=== PATIENT | female | born 1970 | race Caucasian/White ===

== ENCOUNTER 2022-10-04 06:36 | Emergency (ER) | payer BC, SELFPAY ==
[2022-10-04 06:48] VITALS: BP 111/77; PULSE 105; RESP 20; TEMP 36.6; O2SAT 98; BMI 26.6
--- NOTE | 2022-10-04 07:10 | ED.SYNCOPE ---
HPI - Syncope General Stated Complaint: Low blood pressure and syncope <Gregory Beasley MD - Last Filed: 10/04/22 07:26> Time Seen by Provider: 10/04/22 07:01 <Gregory Beasley MD - Last Filed: 10/04/22 07:26> History of Present Illness HPI narrative: Pt is a healthy 51 year old woman who went to bed last night feeling fine. She got up with diarrhea at 0200 and had a brief syncopal episode on the toilet. Pt was not injured and went back to bed she had another episode after diarrhea and vomiting at 0400 at which point pt fell to the floor striking her head. Pt was able to get up with the help of her . Pt has no focal neurological symptoms other than feeling weak and nauseated. She has no abd pain, fevers, chills, dysuria, rash or headache. No obvious deformities to the dylon or scalp. Pt has had no similar symptoms previously. No pain. Pt has had no blood in her vomit or stool. Pt brought in by car by her . <Gregory Beasley MD - Last Filed: 10/04/22 07:26> Related Data Home Medications: Home Medications Medication Instructions Recorded Confirmed dexamethasone 0.5 mg/5 mL oral mg 10/04/22 elixir levothyroxine 112 mcg tablet mcg 10/04/22 <Gergory Beasley MD - Last Filed: 10/04/22 07:26> Allergies/Adverse Reactions: Allergies Allergy/AdvReac Type Severity Reaction Status Date / Time bee venom protein (honey bee) Allergy Mild Hives Verified 10/04/22 06:56 amoxicillin Allergy Hives Verified 10/04/22 06:56 <Gregory Beasley MD - Last Filed: 10/04/22 07:26> Review of Systems Status of ROS: Reports: 10 or more systems reviewed and unremarkable except as noted in History and below <Gregory Beasley MD - Last Filed: 10/04/22 07:26> [facility] Medical History: Medical History Hypothyroid Migraine Mouth sores <Gregory Beasley MD - Last Filed: 10/04/22 07:26> Exam Narrative: Exam Narrative: EXAM GENERAL: Patient appears comfortable and well. EYES: No scleral icterus. THYROID: no thyroid nodules or thyromegaly. LYMPH: No supraclavicular or cervical lymphadenopathy. SKIN: Visible skin seen during exam normal or with benign process only. EXT: No dependent lower extremity pedal edema. HEART: Regular rate and rhythm with no murmurs, rubs, or gallops. LUNGS: Clear to auscultation bilaterally with no crackles or wheezes. ABD: Soft, non tender, non distended. PSYCH: Good eye contact, speech is not pressured. Neurologic cranial nerves 2-12 grossly intact no focal defects. <Gregory Beasley MD - Last Filed: 10/04/22 07:26> Const: Vital Signs, click to edit/add: Vital Signs - 24 hr 10/04/22 06:48 Temperature 97.8 F Pulse Rate [Left P ulse Oximeter] 105 H Respiratory Rate 20 Blood Pressure [Ri ght Upper Arm] 111/77 Pulse Oximetry 98 Oxygen Delivery Me thod Room Air <Gregory Beasley MD - Last Filed: 10/04/22 07:26> Vital Signs, click to edit/add: Vital Signs - 24 hr 10/04/22 06:48 Temperature 97.8 F Pulse Rate [Left P ulse Oximeter] 105 H Respiratory Rate 20 Blood Pressure [Ri ght Upper Arm] 111/77 Pulse Oximetry 98 Oxygen Delivery Me thod Room Air <Joellen Mccallum MD - Last Filed: 10/04/22 08:41> Course Course Hospital Course: Pt seen and examined. No focal defects. Mild tachycardia noted. CT head and neck. cbc, cmp, d dimer, troponin, urinalysis ordered. EKG upon my review shows normal sinus rhythm. Normal saline bolus and iv zofran given. <Gregory Beasley MD - Last Filed: 10/04/22 07:26> Reevaluation(s) Reevaluation #1: Clarified patient's reasons for coming to the ER. She had an episode of vomiting and diarrhea simultaneously that came out of the blue at 2:00 a.m. in the morning while she was on the toilet she became very lightheaded, she started getting tunnel vision and she passed out. About 2 hours later she had another episode of the same thing and when she got out of the bed to go to the bathroom she passed out into her 's arms. She was only unconscious for several seconds before waking up. She is not having any chest pain or shortness of breath. She has no headache. No focal neurologic deficits. Patient received a L of normal saline and felt significantly better. She was not feeling lightheaded. Lab work was unremarkable. Head and neck CT unremarkable. <Joellen Mccallum MD - Last Filed: 10/04/22 08:41> Vital Signs Vital signs: Initial Vital Signs Temperature 97.8 F 10/04/22 06:48 Temperature Source Temporal Artery Scan 10/04/22 06:48 Pulse Rate 105 H 10/04/22 06:48 Respiratory Rate 20 10/04/22 06:48 Blood Pressure 111/77 10/04/22 06:48 Blood Pressure Mean 88 10/04/22 06:48 Blood Pressure Position Semi-Fowlers 10/04/22 06:48 Pulse Oximetry 98 10/04/22 06:48 Oxygen Delivery Method 10/04/22 06:48 Vital Signs Temperature 97.8 F 10/04/22 06:48 Pulse Rate 105 H 10/04/22 06:48 Respiratory Rate 20 10/04/22 06:48 Blood Pressure 111/77 10/04/22 06:48 Pulse Oximetry 98 10/04/22 06:48 Oxygen Delivery Method 10/04/22 06:48 Temperature 97.8 F 10/04/22 06:48 Pulse Rate 105 H 10/04/22 06:48 Respiratory Rate 20 10/04/22 06:48 Blood Pressure 111/77 10/04/22 06:48 Pulse Oximetry 98 10/04/22 06:48 Oxygen Delivery Method 10/04/22 06:48 <Gregory Beasley MD - Last Filed: 10/04/22 07:26> Initial Vital Signs Temperature 97.8 F 10/04/22 06:48 Temperature Source Temporal Artery Scan 10/04/22 06:48 Pulse Rate 105 H 10/04/22 06:48 Respiratory Rate 20 10/04/22 06:48 Blood Pressure 111/77 10/04/22 06:48 Blood Pressure Mean 88 10/04/22 06:48 Blood Pressure Position Semi-Fowlers 10/04/22 06:48 Pulse Oximetry 98 10/04/22 06:48 Oxygen Delivery Method 10/04/22 06:48 Vital Signs Temperature 97.8 F 10/04/22 06:48 Pulse Rate 105 H 10/04/22 06:48 Respiratory Rate 20 10/04/22 06:48 Blood Pressure 111/77 10/04/22 06:48 Pulse Oximetry 98 10/04/22 06:48 Oxygen Delivery Method 10/04/22 06:48 Temperature 97.8 F 10/04/22 06:48 Pulse Rate 105 H 10/04/22 06:48 Respiratory Rate 20 10/04/22 06:48 Blood Pressure 111/77 10/04/22 06:48 Pulse Oximetry 98 10/04/22 06:48 Oxygen Delivery Method 10/04/22 06:48 <Joellen Mccallum MD - Last Filed: 10/04/22 08:41> MDM - Syncope MDM Narrative Medical decision making narrative: 51-year-old female with probable gastroenteritis presenting with vomiting and diarrhea simultaneously, with a syncopal episode. We discussed continued hydration, rest. We discussed reasons for follow-up. Patient was agreeable with everything we discussed had no other questions. <Joellen Mccallum MD - Last Filed: 10/04/22 08:41> Lab Data Attestation: I reviewed the patient's lab results. <Joellen Mccallum MD - Last Filed: 10/04/22 08:41> Labs: Lab Results 10/04/22 10/04/22 10/04/22 Range/Units 07:45 07:45 07:45 WBC 11.82 H (4.50-11.00) K/uL RBC 4.90 (4.00-5.20) m/uL Hgb 14.5 (12.0-16.0) gm/dL Hct 43.7 (33.0-51.0) % MCV 89 (80-100) fL MCH 30 (26-34) pg MCHC 33 (32-36) gm/dL RDW Coeff of Rosita 12.7 (11.5-15.5) % Plt Count 222 (140-440) K/uL Neut % (Auto) 94.6 H (42.0-72.0) % Lymph % (Auto) 1.1 L (20-44) % [place] % (Auto) 3.7 (0.0-11.0) % Eos % (Auto) 0.3 (0.0-7.0) % Baso % (Auto) 0.2 (0.0-3.0) % Neut # (Auto) 11.20 H (1.7-7.0) K/uL Lymph # (Auto) 0.10 L (0.90-2.90) K/uL [place] # (Auto) 0.40 (0.00-0.90) K/UL Eos # (Auto) 0.00 (0.00-0.50) K/uL Baso # (Auto) 0.00 (0.00-0.30) K/uL D-Dimer Quant (PE/DVT) < 0.27 (0.00-0.50) ug/ml Sodium 141 (135-149) mmol/L Potassium 4.4 (3.6-5.1) mmol/L Chloride 111 (96-114) mmol/L Carbon Dioxide 23 (20-32) mmol/L BUN 18 (7-30) mg/dL Creatinine 0.9 (0.5-1.5) mg/dL Estimated Creat Clear 69.23 Estimated GFR 77 ml/min Glucose 117 H (60-115) mg/dL Calcium 8.9 (8.4-10.6) mg/dL Total Bilirubin 0.9 (0.1-1.5) mg/dL AST 23 (12-35) U/L ALT 21 (4-35) U/L Alkaline Phosphatase 54 (40-150) U/L Troponin I < 0.01 L (0.01-0.04) ng/mL Total Protein 7.8 (6.0-8.3) g/dL Albumin 4.6 (3.3-5.0) g/dL <Gregory Beasley MD - Last Filed: 10/04/22 07:26> Lab Results 10/04/22 10/04/22 10/04/22 Range/Units 07:45 07:45 07:45 WBC 11.82 H (4.50-11.00) K/uL RBC 4.90 (4.00-5.20) m/uL Hgb 14.5 (12.0-16.0) gm/dL Hct 43.7 (33.0-51.0) % MCV 89 (80-100) fL MCH 30 (26-34) pg MCHC 33 (32-36) gm/dL RDW Coeff of Rosita 12.7 (11.5-15.5) % Plt Count 222 (140-440) K/uL Neut % (Auto) 94.6 H (42.0-72.0) % Lymph % (Auto) 1.1 L (20-44) % [place] % (Auto) 3.7 (0.0-11.0) % Eos % (Auto) 0.3 (0.0-7.0) % Baso % (Auto) 0.2 (0.0-3.0) % Neut # (Auto) 11.20 H (1.7-7.0) K/uL Lymph # (Auto) 0.10 L (0.90-2.90) K/uL [place] # (Auto) 0.40 (0.00-0.90) K/UL Eos # (Auto) 0.00 (0.00-0.50) K/uL Baso # (Auto) 0.00 (0.00-0.30) K/uL D-Dimer Quant (PE/DVT) < 0.27 (0.00-0.50) ug/ml Sodium 141 (135-149) mmol/L Potassium 4.4 (3.6-5.1) mmol/L Chloride 111 (96-114) mmol/L Carbon Dioxide 23 (20-32) mmol/L BUN 18 (7-30) mg/dL Creatinine 0.9 (0.5-1.5) mg/dL Estimated Creat Clear 69.23 Estimated GFR 77 ml/min Glucose 117 H (60-115) mg/dL Calcium 8.9 (8.4-10.6) mg/dL Total Bilirubin 0.9 (0.1-1.5) mg/dL AST 23 (12-35) U/L ALT 21 (4-35) U/L Alkaline Phosphatase 54 (40-150) U/L Troponin I < 0.01 L (0.01-0.04) ng/mL Total Protein 7.8 (6.0-8.3) g/dL Albumin 4.6 (3.3-5.0) g/dL <Joellen Mccallum MD - Last Filed: 10/04/22 08:41> Imaging Data CT scan - head: Attestation: I have reviewed the pertinent imaging results. <Joellen Mccallum MD - Last Filed: 10/04/22 08:41> Radiologist's impression: CT head without contrast. COMPARISON: None. FINDINGS: CSF spaces: Within normal limits for age. Brain parenchyma and extra-axial spaces: The mays-white differentiation is normal. No sign of mass, hemorrhage, or midline shift. No extra-axial fluid collection. Benign basal ganglia calcifications. Skull base and calvarium: The visualized paranasal sinuses and mastoid air cells demonstrate no acute or significant findings. The visualized orbits are grossly unremarkable. No skull fractures. IMPRESSION: No signs of acute injury or significant disease. <Joellen Mccallum MD - Last Filed: 10/04/22 08:41> Cervical spine CT: Attestation: I have reviewed the pertinent imaging results. <Joellen Mccallum MD - Last Filed: 10/04/22 08:41> Radiologist's impression: CT cervical spine without contrast. COMPARISON: None. FINDINGS: Vertebrae: Alignment is normal. There are no fractures or suspicious bony lesions. Discs and facet joints: Mild degenerative disc space narrowing and spondylosis at C4-5 and C5-6. Unremarkable facet joints. Extraspinal findings: Prevertebral soft tissues, visualized airway, and visualized lungs are unremarkable. IMPRESSION: No sign of acute injury in the cervical spine. <Joellen Mccallum MD - Last Filed: 10/04/22 08:41> ECG Data Attestation: I personally reviewed and interpreted this ECG as follows: (Normal sinus rhythm, pulse of 86) <Joellen Mccallum MD - Last Filed: 10/04/22 08:41> Discharge Plan Discharge Clinical Impression: Vasovagal syncope, Gastroenteritis <Gregory Beasley MD - Last Filed: 10/04/22 07:26> Patient Disposition: Home, Self-Care <Gregory Beasley MD - Last Filed: 10/04/22 07:26> Condition: Improved <Gregory Beasley MD - Last Filed: 10/04/22 07:26> Additional Instructions: Make sure to stay well hydrated by drinking small amounts of fluid very frequently throughout the day. Move slowly when you are getting up from a sitting or lying position. Advanced your diet as tolerated. <Gregory Beasley MD - Last Filed: 10/04/22 07:26> Prescriptions: No Action dexamethasone 0.5 mg/5 mL elixir Label Comments: TAKE 5 ML BY MOUTH THREE TIMES DAILY FOR 3 TO 5 DAYS. USE ONCE EVERY 2 MONTHS FOR FLAREUP OF MOUTH SORES levothyroxine 112 mcg tablet <Gregory Beasley MD - Last Filed: 10/04/22 07:26> Follow Up/Referrals: Veronica Black MD [Staff Physician] - <Gregory Beasley MD - Last Filed: 10/04/22 07:26> Stand Alone Forms: [employer] Info Instructions <Gregory Beasley MD - Last Filed: 10/04/22 07:26>
--- NOTE | 2022-10-04 07:16 | CRLHL7_ITS ---
For Patients: As a result of the Century Cures Act, medical imaging exams and procedure reports are released immediately into your electronic medical record. You may view this report before your referring provider. If you have questions, please contact your health care provider. INDICATION: Fall. TECHNIQUE: CT head without contrast. COMPARISON: None. FINDINGS: CSF spaces: Within normal limits for age. Brain parenchyma and extra-axial spaces: The mays-white differentiation is normal. No sign of mass, hemorrhage, or midline shift. No extra-axial fluid collection. Benign basal ganglia calcifications. Skull base and calvarium: The visualized paranasal sinuses and mastoid air cells demonstrate no acute or significant findings. The visualized orbits are grossly unremarkable. No skull fractures. IMPRESSION: No signs of acute injury or significant disease. Please note that all CT scans at this facility use dose modulation, iterative reconstruction, and/or weight-based dosing when appropriate to reduce radiation dose to as low as reasonably achievable. Dictated by Jefferson Drake MD @ 10/04/2022 7:46:04 AM (Electronically Signed)
--- NOTE | 2022-10-04 07:16 | CRLHL7_ITS ---
For Patients: As a result of the Cures Act, medical imaging exams and procedure reports are released immediately into your electronic medical record. You may view this report before your referring provider. If you have questions, please contact your health care provider. INDICATION: Fall. TECHNIQUE: CT cervical spine without contrast. COMPARISON: None. FINDINGS: Vertebrae: Alignment is normal. There are no fractures or suspicious bony lesions. Discs and facet joints: Mild degenerative disc space narrowing and spondylosis at C4-5 and C5-6. Unremarkable facet joints. Extraspinal findings: Prevertebral soft tissues, visualized airway, and visualized lungs are unremarkable. IMPRESSION: No sign of acute injury in the cervical spine. Please note that all CT scans at this facility use dose modulation, iterative reconstruction, and/or weight-based dosing when appropriate to reduce radiation dose to as low as reasonably achievable. Dictated by Jefferson Drake MD @ 10/04/2022 7:51:06 AM (Electronically Signed)
[2022-10-04] MEDS: 0.9 % SODIUM CHLORIDE 1000 ml 1,000 ML IV (07:48)
[2022-10-04] MEDS: ONDANSETRON 2 MG/ML inj 4 MG IVP (07:48)
[2022-10-04 07:51] LABS: Basophils Percent Auto 0.2 % (0.0-3.0); Eosinophils Percent Auto 0.3 % (0.0-7.0); Hematocrit 43.7 % (33.0-51.0); Hemoglobin* 14.5 gm/dL (12.0-16.0); Immature Granulocytes Pct Auto 0.1 %; Lymphocytes Percent Auto 1.1 % (20-44); Mean Corpuscular HGB Conc 33 gm/dL (32-36); Mean Corpuscular Hemoglobin 30 pg (26-34); Mean Corpuscular Volume 89 fL (80-100); Monocytes Percent Auto 3.7 % (0.0-11.0); Neutrophils Percent Auto 94.6 % (42.0-72.0); Platelet Count* 222 K/uL (140-440); RDW Coefficient of Variation % 12.7 % (11.5-15.5); White Blood Count* 11.82 K/uL (4.50-11.00)
[2022-10-04 07:53] LABS: Slide Review Reflex No
[2022-10-04 08:06] LABS: Albumin* 4.6 g/dL (3.3-5.0); Chloride* 111 mmol/L (96-114); Potassium* 4.4 mmol/L (3.6-5.1); Sodium* 141 mmol/L (135-149)
[2022-10-04 08:08] LABS: Creatinine* 0.9 mg/dL (0.5-1.5); Est. Creatinine Clearance* 69.23; Estimated Glomerular Filt Rate 77 ml/min
[2022-10-04 08:09] LABS: Alanine Aminotransferase* 21 U/L (4-35); Alkaline Phosphatase* 54 U/L (40-150); Aspartate Amino Transferase* 23 U/L (12-35); Bilirubin Total* 0.9 mg/dL (0.1-1.5); Blood Urea Nitrogen* 18 mg/dL (7-30); Calcium* 8.9 mg/dL (8.4-10.6); Carbon Dioxide* 23 mmol/L (20-32); Glucose* 117 mg/dL (60-115); Total Protein* 7.8 g/dL (6.0-8.3)
[2022-10-04 08:14] LABS: D Dimer Quantitative* < 0.27 ug/ml (0.00-0.50)
[2022-10-04 08:35] LABS: Troponin I* < 0.01 ng/mL (0.01-0.04)
[2022-10-04 08:51] VITALS: BP 101/71; PULSE 78; RESP 16; O2SAT 99
== END 2022-10-04 08:59 | disposition home or self-care (01) ==
PROVIDERS: Internal Medicine; Emergency Provider Family Medicine; PCP Family Medicine
DX: R55 Syncope and collapse (principal); K52.9 Noninfective gastroenteritis and colitis, unspecified
CPT/HCPCS: 36415; 70450; 72125; 80053; 84484; 85025; 85379; 96374; 99284; 99285; J2405; J7030